=== PATIENT | female | born 1965 | race Caucasian/White ===

== ENCOUNTER 2018-07-04 16:55 | Emergency (ER) | payer BC ==
--- NOTE | 2018-07-04 18:41 | ED ---
Lower Extremity - HPI Summary HPI Summary: 52-year-old female presents with right calf pain for the past couple days. She states she has an issue with her IT band of her right leg that is seeing PT for. A couple days ago she noticed pain along her martinez and then started to extend to her right calf. She has a history of varicose vein surgery. She states she started wearing compression socks. She states that the pain feels like an ache. Denies any injury. No rash. No fevers. No chest pain or shortness breath. She is nonsmoker. No recent travel or surgeries. No family history of blood clots. she is not on control. - History of Current Complaint Chief Complaint: EDExtremityLower Stated Complaint: PAIN IN RT LOWER LEG PER PT Time Seen by Provider: 07/04/18 17:56 Pain Intensity: 3 - Allergies/Home Medications Allergies/Adverse Reactions: Allergies Allergy/AdvReac Type Severity Reaction Status Date / Time Sulfa (Sulfonamide Allergy Swelling Verified 07/04/18 17:07 Antibiotics) Of Face,Lips,& Throat tramadol Allergy Headache Verified 07/04/18 17:07 Home Medications: Home Medications Gluc Nunez/Chondro Nunez A/Vit C/Mn [Glucosamine Chondroitin] 1 tab PO TID 07/04/18 [ History Confirmed 07/04/18] Rizatriptan Benzoate [Rizatriptan Benzoate Odt] 10 mg PO DAILY PRN 07/04/18 [ History Confirmed 07/04/18] PMH/Surg Hx/FS Hx/Imm Hx Endocrine/Hematology History: Denies: Hx Diabetes Cardiovascular History: Denies: Hx Hypertension, Hx Pacemaker/ICD History: Denies: Hx Renal Disease Sensory History: Denies: Hx Hearing Aid Psychiatric History: Denies: Hx Panic Disorder - Surgical History Surgery Procedure, Year, and Place: RIGHT KNEE TEAR REPAIR Infectious Disease History: No Infectious Disease History: Reports: Hx Shingles Denies: Traveled Outside the [place] in Last 30 Days - Social History Substance Use Type: Reports: None Review of Systems Negative: Fever Negative: Chest Pain Negative: Shortness Of Breath Positive: Myalgia - right calf pain All Other Systems Reviewed And Are Negative: Yes Physical Exam Triage Information Reviewed: Yes Vital Signs On Initial Exam: Initial Vitals Temp Pulse Resp BP Pulse Ox 98.3 F 76 16 151/99 99 07/04/18 17:05 07/04/18 17:05 07/04/18 17:05 07/04/18 17:05 07/04/18 17:05 Vital Signs Reviewed: Yes Appearance: Positive: Well-Appearing Skin: Positive: Warm, Dry Head/Face: Positive: Normal Head/Face Inspection Eyes: Positive: Normal, Conjunctiva Clear ENT: Positive: Pharynx normal Respiratory/Lung Sounds: Positive: Clear to Auscultation, Breath Sounds Present Cardiovascular: Positive: Normal, RRR Musculoskeletal: Positive: Strength/ROM Intact - right leg, Other - tenderness right calf. Negative: Edema Left Neurological: Positive: Normal Psychiatric: Positive: Normal Diagnostics - Vital Signs Vital Signs Temp Pulse Resp BP Pulse Ox 07/04/18 17:05 98.3 F 76 16 151/99 99 - Laboratory Lab Statement: Any lab studies that have been ordered have been reviewed, and results considered in the medical decision making process. - Ultrasound No standard instances Ultrasound Interpretation Completed By: Radiologist Summary of Ultrasound Findings: IMPRESSION: 1. No evidence of right lower extremity deep vein thrombosis. 2. Prior right greater saphenous vein ablation. 3. Venous reflux, most pronounced in the right popliteal vein Lower Extremity Course/Dx - Course Course Of Treatment: 52-year-old female presents with right calf pain for the past couple days. She states she has an issue with her IT band of her right leg that is seeing PT for. A couple days ago she noticed pain along her martinez and then started to extend to her right calf. She has a history of varicose vein surgery. She states she started wearing compression socks. She states that the pain feels like an ache. Denies any injury. No rash. No fevers. No chest pain or shortness breath. She is nonsmoker. No recent travel or surgeries. No family history of blood clots. she is not on control. On exam tenderness over right calf. Neurovascularly intact. Ultrasound shows no DVT. Told to continue compression socks. Patient understands and agrees with this plan. - Diagnoses Differential Diagnosis/HQI/PQRI: Positive: DVT, Sprain, Other - venous insufficiency Provider Diagnoses: Right calf pain, Venous reflux Discharge - Sign-Out/Discharge Documenting (check all that apply): Patient Departure Patient Received Moderate/Deep Sedation with Procedure: No - Discharge Plan Condition: Good Disposition: HOME Patient Education Materials: Leg Pain (ED) Referrals: Crepet,Alisson, MD [Primary Care Provider] - Additional Instructions: Use compression socks Ice Elevate Take Tylenol for pain every 6 hours Follow up with primary within 5 days Return to ED if develop any new or worsening symptoms - Billing Disposition and Condition Condition: GOOD Disposition: Home
[2018-07-04 19:36] VITALS: BP 113/95
== END 2018-07-04 19:36 | disposition home or self-care (01) ==
LOC: ED 16:55
DX: I87.2 Venous insufficiency (chronic) (peripheral) (principal); M79.604 Pain in right leg; M79.661 Pain in right lower leg; Z88.2 Allergy status to sulfonamides
CPT/HCPCS: 99282